=== PATIENT | female | born 1955 | race Caucasian/White ===

== ENCOUNTER → 2023-05-06 07:12 | Outpatient (REF) | payer MEDICARE, BC, SELFPAY | LOC: WDC 07:12 | PROVIDERS: ATTENDING PHYSICIAN Internal Medicine Hematology & Oncology; FAMILY PHYSICIAN Family Medicine | DX: Z12.31 Encounter for screening mammogram for malignant neoplasm of breast (principal) | CPT/HCPCS: 77063; 77067 ==

== ENCOUNTER → 2023-07-02 08:35 | Outpatient (REF) | payer MEDICARE, BC, SELFPAY | LOC: WDC 08:35 | PROVIDERS: ATTENDING PHYSICIAN Surgery; FAMILY PHYSICIAN Family Medicine | DX: R92.2 Inconclusive mammogram (principal) | CPT/HCPCS: 76641 ==

== ENCOUNTER 2023-10-28 10:51 | Emergency (ER) | payer MEDICARE, BC, SELFPAY ==
[2023-10-28 10:52] VITALS: BP 177/97
[2023-10-28 11:18] VITALS: BMI 24.5
--- NOTE | 2023-10-28 11:39 | ED.GENMED ---
History of Present Illness
General
Chief Complaint: Abdominal Pain
Source: patient
Exam Limitations: none
Time Seen by Provider: 10/28/23 11:17
History of Present Illness
History of Present Illness:
68 year old female presents with increasing abdominal pain and swelling sensation to the lower abdominal area. Pain tends to be worse on the right side that radiates to the lower back. No associated urinary symptoms. No fevers or chills. She has
had intermittent bouts of this pain for the past almost 2 years. At the onset of her symptoms, she had a CT scan and ultrasound which were negative. Remotely she has a history of breast cancer. She has no prior abdominal surgical history. She
states she has been eating as much and has any moving her bowels as much either. No blood in the stool. No vomiting. No other complaints at this time
Phy Exam
Physical Exam
Physical Exam:
General: well appearing female, nad
HEENT: NC/AT
Heart: RRR
Lungs: CTA
ABd: soft, tender to right greater than left lower quadrants. Normal bowel sounds. No guarding or rebound. Mildly distended no cva tenderness
Ext: no cyanosis
Course
Orders/Labs/Results
Orders:
Orders
10/28/23 11:34
CT Abd/pel W Iv And Oral Contr Urgent
Comment:
Reason For Exam: lower abdominal pain/bulging sensation
Iohexol [Omnipaque] See Protocol PO NOW STA
10/28/23 11:43
Basic Metabolic Panel Urgent
Complete Blood Count/With Diff Urgent
Urinalysis Reflex To Culture Urgent
Date Specimen was Collected: 10/28/23
Time Specimen was Collected: 11:38
Urine Microscopic Reflex Cult Urgent
Urine Culture Urgent
SCOT Source: U
Specimen Description:
Date Specimen was Collected: 10/28/23
Time Specimen was Collected: 11:38
10/28/23 13:08
Comprehensive Metabolic Panel Urgent
10/28/23 14:57
Magnesium Citrate [Citroma] 300 ml PO ONCE ONE
Abnormal Lab Results
10/28/23 10/28/23
11:43 13:08
MCH 32.3 H pg
(27.0-31.0)
MPV 10.7 H fL
(7.4-10.4)
Lymphocytes % 15.9 L %
(20.5-51.1)
Glucose 107 H mg/dl 100 H mg/dl
(70-99) (70-99)
AST 37 H U/L
(14-36)
ALT 36 H U/L
(0-35)
Urine Ketones 2+ A
(Negative)
Ur Occult Blood Reflex 1+ A
(Negative)
Leukocyte Esterase Rfl Trace A
(Negative)
Urine RBC 30-40 A /HPF
(0-2)
Urine WBC (Reflex) 30-40 A /HPF
(0-5)
Urine Bacteria (Reflex) Many A
(Negative)
10/28/23 11:43
10/28/23 13:08
Vital Signs
Initial and Last Documented VS:
Initial Vital Signs
Temp Pulse Resp BP Pulse Ox
99.7 F 111 20 177/97 99
10/28/23 10:52 10/28/23 10:52 10/28/23 10:52 10/28/23 10:52 10/28/23 10:52
Last Documented Vital Signs
Temp Pulse Resp BP Pulse Ox
99.7 F 111 20 144/77 100
10/28/23 10:52 10/28/23 10:52 10/28/23 10:52 10/28/23 14:17 10/28/23 14:17
MDM/Problems Addressed
Differential Diagnosis Includes:
Abdominal pain. ACute on chronic in nature. Pain is right lower. Consider appendicitis vs constipation vs hernia vs mass.
Check urine, labs and oral/iv ct
*Critical Care Note
Total Time (30-74mins, 75-104mins- exclusive of procedures): Not Applicable
Update Note
Update Note:
Labs reviewed without significant finding. Urinalysis with white cells blood and bacteria. Will cover for urinary tract infection. CT shows a large amount of stool throughout the colon but no other acute finding. Will recommend magnesium citrate
for constipation as well as an antibiotic for her UTI. Recommended use of MiraLAX moving forward.
ED Attending Note
-
Portions of this chart may have been created with voice recognition software.� Occasional wrong word or��sound alike� substitutions may have occurred due to the inherent limitations of voice recognition software.
Discharge Plan
Departure
Patient Disposition: Home (Routine Discharge)
Date of Disposition: 10/28/23
Time of Disposition: 15:00
Patient with high blood pressure during this ER visit?: No
Discharge Problem:
Constipation, Acute UTI
Instructions: Constipation, Adult (DC)
Prescriptions:
New
cefdinir 300 mg capsule
300 mg PO BID Qty: 14 0RF
No Action
aspirin 81 MG tablet,delayed release (DR/EC)
81 mg PO DAILY
cyanocobalamin (vitamin B-12) [Vitamin B-12] 500 MCG tablet
500 mcg PO DAILY
cholecalciferol (vitamin D3) [Vitamin D3] 400 UNITS tablet
400 units PO BID
eeoxoygp-ijk-xall-FA-vit K-lut [Centrum Silver Women] 1 EACH tablet
1 ea PO DAILY
Ca-D3-mag ub-quuz-lbu-chad-bor [Calcium 600-D3 Plus (mag-zinc)] 1 EACH tablet
1 ea PO BID
ascorbic acid (vitamin C) [Vitamin C] 500 MG tablet
500 mg PO DAILY
famotidine 40 MG tablet
40 mg PO HS
letrozole 2.5 MG tablet
2.5 mg PO DAILY
Referrals:
Joey Ennis MD [Family Provider] -
Activity Restrictions/Additional Instructions:
Use antibiotics as directed. Continue with MiraLAX twice a day. Return here if worse otherwise follow-up with your GI doctor
Interventions
Interventions:
*Risk Screen - Suicide Last Done: 10/28/23 11:18
*General Assessment Last Done: 10/28/23 11:18
*Neglect/Abuse Screening Last Done: 10/28/23 11:18
ED- Fall Risk Assessment Last Done: 10/28/23 11:18
*ED COVID-19 Vaccine History Last Done: 10/28/23 11:18
KG-Vtjwat-Vjtdkcjtgx Assessment Last Done: 10/28/23 11:18
Discharge Date and Time
Print Language: GABONESE
[2023-10-28] MEDS: OMNIPAQUE 50 ML PO (11:51)
[2023-10-28 12:03] LABS: % Basophils 0.6 % (0-2); % Eosinophils 1.7 % (0-6); % Immature Granulocytes 0.3 % (0-0.5); % Lymphocytes 15.9 % (20.5-51.1); % Monocytes 7.5 % (1.7-9.3); Absolute Basophils 0.1 10^3/uL (0-0.2); Absolute Eosinophils 0.1 10^3/uL (0-0.7); Absolute Lymphocytes 1.2 10^3/uL (1.2-3.4); Absolute Monocytes 0.6 10^3/uL (0.1-0.6); Absolute Neutrophils 5.7 10^3/uL (1.4-6.5); Hematocrit 38.8 % (37.0-47.0); Hemoglobin 13.6 g/dL (12.0-16.0); Mean Corp Hgb Conc. 35.1 g/dL (33.0-37.0); Mean Corpuscular Hgb 32.3 pg (27.0-31.0); Mean Corpuscular Volume 92.2 fL (81.0-99.0); Mean Platelet Volume 10.7 fL (7.4-10.4); Nucleated Red Blood Cells % 0 %; Platelet Count 283 10^3/uL (130-400); Red Blood Cell Count 4.21 10^6/uL (4.20-5.40); Red Cell Dist. Width 12.6 % (11.5-14.5); White Blood Cell Count 7.7 10^3/uL (4.8-10.8)
[2023-10-28 12:18] LABS: Blood Urea Nitrogen 9 mg/dl (7-17); Calcium 10.2 mg/dl (8.4-10.2); Carbon Dioxide 25 mmol/L (22-30); Chloride 103 mmol/L (98-107); Estimated Creatinine Clearance 66 ml/min; Glucose 107 mg/dl (70-99); Sodium 137 mmol/L (135-145); eGFR > 60.00
[2023-10-28 13:11] LABS: Urine Albumin Negative (Neg - Trace); Urine Bilirubin Negative (Negative); Urine Character Clear (Clear); Urine Color Yellow; Urine Glucose Negative (Negative); Urine Ketone 2+ (Negative); Urine Leukocyte Trace (Negative); Urine Nitrite Negative (Negative); Urine Occult Blood 1+ (Negative); Urine Urobilinogen Negative (Neg - 1+)
[2023-10-28 13:28] LABS: ALT (SGPT) 36 U/L (0-35); AST (SGOT) 37 U/L (14-36); Albumin 4.5 g/dl (3.5-5.0); Alkaline Phosphatase 53 U/L (38-126); Blood Urea Nitrogen 8 mg/dl (7-17); Carbon Dioxide 26 mmol/L (22-30); Chloride 103 mmol/L (98-107); Estimated Creatinine Clearance 66 ml/min; Glucose 100 mg/dl (70-99); Sodium 137 mmol/L (135-145); Total Bilirubin 0.6 mg/dl (0.2-1.3); Total Protein 7.4 g/dl (6.3-8.2); eGFR > 60.00
[2023-10-28 13:54] LABS: Urine Mucus Few
[2023-10-28 13:57] LABS: Urine Bacteria Many (Negative); Urine Red Blood Cell 30-40 /HPF (0-2); Urine White Cell 30-40 /HPF (0-5)
[2023-10-28 14:17] VITALS: BP 144/77
[2023-10-28] MEDS: CITROMA 300 ML PO (15:07)
== END 2023-10-28 15:12 | disposition home or self-care (01) ==
LOC: EMR 10:51
PROVIDERS: Physician Assistant; EMERGENCY PHYSICIAN Emergency Medicine; FAMILY PHYSICIAN Family Medicine
DX: K59.00 Constipation, unspecified (principal); N39.0 Urinary tract infection, site not specified; Z85.3 Personal history of malignant neoplasm of breast
CPT/HCPCS: 99284; 74177; 80048; 80053; 81003; 81015; 85025; 87086; Q9967

== ENCOUNTER → 2024-05-10 07:14 | Outpatient (REF) | payer MEDICARE, BC, SELFPAY | LOC: WDC 07:14 | PROVIDERS: ATTENDING PHYSICIAN Family Medicine | DX: Z12.31 Encounter for screening mammogram for malignant neoplasm of breast (principal) | CPT/HCPCS: 77063; 77067 ==

== ENCOUNTER → 2024-07-02 07:47 | Outpatient (REF) | payer MEDICARE, BC, SELFPAY | LOC: WDC 07:47 | PROVIDERS: ATTENDING PHYSICIAN Surgery; FAMILY PHYSICIAN Family Medicine | DX: R92.2 Inconclusive mammogram (principal); Z85.3 Personal history of malignant neoplasm of breast; C50.411 Malignant neoplasm of upper-outer quadrant of right female breast; Z17.0 Estrogen receptor positive status [ER+] | CPT/HCPCS: 76641 ==

== ENCOUNTER → 2024-08-05 07:56 | Outpatient (REF) | payer MEDICARE, BC, SELFPAY | LOC: RAD 07:56 | PROVIDERS: ATTENDING PHYSICIAN Internal Medicine Hematology & Oncology; FAMILY PHYSICIAN Family Medicine | DX: Z78.0 Asymptomatic menopausal state (principal); C50.211 Malignant neoplasm of upper-inner quadrant of right female breast; Z79.811 Long term (current) use of aromatase inhibitors | CPT/HCPCS: 77080 ==

== ENCOUNTER → 2024-10-02 08:50 | Outpatient (REF) | payer MEDICARE, BC, SELFPAY | LOC: RCS 08:50 | PROVIDERS: ATTENDING PHYSICIAN Internal Medicine; FAMILY PHYSICIAN Family Medicine | DX: C50.919 Malignant neoplasm of unspecified site of unspecified female breast (principal); Z09 Encounter for follow-up examination after completed treatment for conditions other than malignant neoplasm | CPT/HCPCS: 93306 ==

== ENCOUNTER → 2024-11-25 09:57 | Outpatient (REF) | payer MEDICARE, BC, SELFPAY | LOC: RCS 09:57 | PROVIDERS: ATTENDING PHYSICIAN Internal Medicine; FAMILY PHYSICIAN Family Medicine | DX: C50.919 Malignant neoplasm of unspecified site of unspecified female breast (principal); Z09 Encounter for follow-up examination after completed treatment for conditions other than malignant neoplasm | CPT/HCPCS: 93306; 93356 ==